=== PATIENT | male | born 1960 | race Caucasian/White ===

== ENCOUNTER 2017-06-24 07:18 | Outpatient (CLI) | payer OTHER ==
[2017-06-24] MEDS ORDERED: ISOVUE-370 76%-LOCM 1 ML ONE (15:11)
== END 2017-06-24 07:19 | disposition home or self-care (01) ==
LOC: BICCT 07:18
PROVIDERS: ATTEND Urology
DX: R31.29 Other microscopic hematuria (principal); K40.90 Unilateral inguinal hernia, without obstruction or gangrene, not specified as recurrent
CPT/HCPCS: 74178